=== PATIENT | male | born 1995 | race American Indian/Alaskan Native ===

== ENCOUNTER 2017-03-26 00:35 | Emergency (ER) | payer SELFPAY ==
[2017-03-26 03:57] LABS: Bilirubin,Urine NEG (Negative); Blood,Urine NEG (Negative); Ketones,Urine NEG (Negative); Leukocyte Esterase,Urine NEG (Negative); Nitrite,Urine NEG (Negative); Protein,Urine <15 mg/dL mg/dL (Negative)
[2017-03-26] MEDS ORDERED: ROCEPHIN IM ONE (07:33)
[2017-03-26] MEDS ORDERED: XYLOCAINE 1% MPF 5 mL INFILTRATI ONE (07:33)
[2017-03-26] MEDS ORDERED: ZITHROMAX PO ONE (07:33)
--- NOTE | 2017-03-26 07:38 | Emergency Department Report ---
ED Male HPI - General Chief complaint: Abdominal Pain Stated complaint: LOWER ABD PAIN Time Seen by Provider: 03/26/17 07:32 Source: patient Mode of arrival: Ambulatory Limitations: No Limitations - History of Present Illness Initial comments: Pt states he has had on and off swelling and pain in his groin x 1 week, R > L. No abdominal pain, fevers, nausea, vomiting, testicular pain, dysuria, discharge. States has had multiple lesions to scrotum for "a long time." Complaint: groin pain -: Gradual, days(s) (5) Location: right inguinal region, left inguinal region Severity: mild Severity scale (0 -10): 4 Quality: aching Consistency: intermittent Improves with: none Worsens with: none denies other symptoms - Related Data Sexually active: Yes Previous Rx's Medication Instructions Recorded Last Taken Type Sulfamethoxazole/Trimethoprim 1 each PO BID #20 tablet 03/26/17 Unknown Rx [Bactrim Ds Tablet] Allergies Allergy/AdvReac Type Severity Reaction Status Date / Time No Known Allergies Allergy Unverified 03/26/17 01:51 ED Review of Systems ROS: Stated complaint: LOWER ABD PAIN Other details as noted in HPI Comment: All other systems reviewed and negative Constitutional: denies: chills, fever Eyes: denies: eye pain, eye discharge, vision change ENT: denies: ear pain, throat pain Respiratory: denies: cough, shortness of breath, wheezing Cardiovascular: denies: chest pain, palpitations Endocrine: no symptoms reported Gastrointestinal: denies: abdominal pain, nausea, diarrhea Genitourinary: denies: urgency, dysuria Musculoskeletal: denies: back pain, joint swelling, arthralgia Skin: denies: rash, lesions Neurological: denies: headache, weakness, paresthesias Psychiatric: denies: anxiety, depression Hematological/Lymphatic: denies: easy bleeding, easy bruising ED Past Medical Hx - Past Medical History Previous Medical History?: No - Surgical History Past Surgical History?: No - Social History Smoking Status: Current Every Day Smoker Substance Use Type: None - Medications Home Medications: Home Medications Medication Instructions Recorded Confirmed Last Taken Type Sulfamethoxazole/Trimethoprim 1 each PO BID #20 tablet 03/26/17 Unknown Rx [Bactrim Ds Tablet] ED Physical Exam - General Limitations: No Limitations General appearance: alert, in no apparent distress - Head Head exam: Present: atraumatic, normocephalic - Eye Eye exam: Present: normal appearance - ENT ENT exam: Present: mucous membranes moist - Neck Neck exam: Present: normal inspection - Respiratory Respiratory exam: Present: normal lung sounds bilaterally. Absent: respiratory distress - Cardiovascular Cardiovascular Exam: Present: regular rate, normal rhythm. Absent: systolic murmur, diastolic murmur, rubs, gallop - GI/Abdominal GI/Abdominal exam: Present: soft, normal bowel sounds. Absent: distended, tenderness, guarding, rebound - Rectal Rectal exam: Present: deferred - exam: Present: other (penis normal. no testicular swelling or tenderness. multiple wart like lesions to scrotum. tender bilateral inguinal lymphadenopathy , nodes freely mobile and < 1 cm. ) - Extremities Exam Extremities exam: Present: normal inspection - Back Exam Back exam: Present: normal inspection - Neurological Exam Neurological exam: Present: alert, oriented X3 - Psychiatric Psychiatric exam: Present: normal affect, normal mood - Skin Skin exam: Present: warm, dry, intact, normal color. Absent: rash ED Course Vital Signs 03/26/17 01:46 Temperature 98.6 F Pulse Rate 87 Respiratory 16 Rate Blood Pressure 128/83 O2 Sat by Pulse 99 Oximetry - Reevaluation(s) Reevaluation #1: 03/26/17 07:37 Pt is in NAD and stable for d/c. ED Medical Decision Making - Lab Data UA clear - Medical Decision Making Pt has normal exam outside of couple mildly enlarged tender inguinal lymph nodes. UA clear. No systemic sx. Will give course of abx and PCP follow up in 2- 3 days. - Differential Diagnosis UTI, STI, genital warts. Critical care attestation.: If time is entered above; I have spent that time in minutes in the direct care of this critically ill patient, excluding procedure time. ED Disposition Clinical Impression: Inguinal lymphadenopathy, Genital lesion, male Disposition: - TO HOME OR SELFCARE Is pt being admited?: No Condition: Good Instructions: Lymphadenopathy (ED) Prescriptions: Sulfamethoxazole/Trimethoprim [Bactrim Ds Tablet] 1 each PO BID #20 tablet Referrals: MAHI FENTON MD [Staff Physician] - 2-3 Days Time of Disposition: 07:38
[2017-03-26 08:43] VITALS: BP 141/90
== END 2017-03-26 08:10 | disposition home or self-care (01) ==
LOC: ED 00:35
DX: R59.0 Localized enlarged lymph nodes (principal); N50.9 Disorder of male genital organs, unspecified; L98.8 Other specified disorders of the skin and subcutaneous tissue; F17.200 Nicotine dependence, unspecified, uncomplicated
CPT/HCPCS: 81001; 87591; 96372; 99282; J0696

== ENCOUNTER 2017-09-12 20:41 | Emergency (ER) | payer OTHER ==
[2017-09-12 21:46] LABS: Bilirubin,Urine NEG (Negative); Blood,Urine NEG (Negative); Color,Urine Yellow (Yellow); Mucus,Urine FEW /HPF; Protein,Urine <15 mg/dL mg/dL (Negative); WBC,Urine < 1.0 /HPF (0.0-6.0)
--- NOTE | 2017-09-13 04:09 | Emergency Department Report ---
HPI - General Chief Complaint: Upper Respiratory Infection Time Seen by Provider: 09/13/17 03:24 - HPI HPI: Patient care reports pain to mid chest tightness 2 days. He said pain is mostly with movement.. He also reports difficulty taking a deep breath. Denies any abdominal pain. Denies any fever or chills. He states that he has a dry cough. Denies any wheezing or stridor. Denies any fever or chills. Denies any nausea or vomiting. Pain is 7 out of 10 to chest and comes and goes. Feels sharp. Pain with taking a deep breath per patient. Patient also complained that he had burning with urination and denies any discharge. He said about 3 months ago somebody that he had sexual encounter with told him that she had Trichomonas after condom had broke. He said since he's been having burning but no discharge. He has a history of asthma. Denies any wheezing. Denies any blood in his urine. No medication taken for pain per patient. Burning pain with urination none without. Chest pain is worse with breathing and movement. Denies any nausea or vomiting. Denies any sore throat. He said he was told that he has allergies from having nasal congestion and runny nose but he is not sure .denies any rash or lesion to genital area. ED Past Medical Hx - Past Medical History Previous Medical History?: Yes Hx Asthma: Yes - Surgical History Past Surgical History?: No - Family History Family history: no significant - Social History Smoking Status: Never Smoker Substance Use Type: Alcohol - Medications Home Medications: Home Medications Medication Instructions Recorded Confirmed Last Taken Type Sulfamethoxazole/Trimethoprim 1 each PO BID #20 tablet 03/26/17 Unknown Rx [Bactrim Ds Tablet] Cetirizine HCl [ZyrTEC] 10 mg PO QAM 14 Days #14 capsule 09/13/17 Unknown Rx Fluticasone [Flonase] 1 spray NS QDAY 14 Days #1 bottle 09/13/17 Unknown Rx Naproxen 500 mg PO Q12H PRN #12 tablet 09/13/17 Unknown Rx ED Review of Systems ROS: Stated complaint: CHEST PAIN,PAIN WHEN URINATING Other details as noted in HPI Comment: All other systems reviewed and negative Constitutional: no symptoms reported Eyes: denies: eye pain, eye discharge ENT: congestion. denies: ear pain, throat pain, dental pain, epistaxis Respiratory: cough, SOB with exertion. denies: orthopnea, shortness of breath, SOB at rest, stridor, wheezing Cardiovascular: chest pain. denies: palpitations, dyspnea on exertion, orthopnea, edema, syncope, paroxysmal nocturnal dyspnea Gastrointestinal: denies: abdominal pain, nausea, vomiting, diarrhea, constipation, hematemesis, melena, hematochezia Genitourinary: dysuria. denies: frequency, hematuria, discharge, testicular pain, testicular mass Musculoskeletal: denies: back pain, joint swelling, arthralgia, myalgia Skin: denies: rash Neurological: denies: headache, numbness, paresthesias, confusion, abnormal gait , vertigo Physical Exam - Physical Exam Vital Signs: Vital Signs 09/12/17 09/12/17 20:41 20:46 Temperature 98.6 F 98.6 F Pulse Rate 83 83 Respiratory 18 18 Rate Blood Pressure 135/77 135/77 O2 Sat by Pulse 100 100 Oximetry General: This is a 22-year-old male well-nourished well-developed in no acute distress. Physical Exam: Head: Normocephalic, atraumatic, no abrasion, no bruising and no contusion. Eyes: Biateral pupils equal and reactive to light, bilateral EOM intact.. Bilateral conjunctival and sclera without injection, normal accommodation. Mouth: Mucosa dry, no pharyngeal exudate or erythema. No peritonsillar abscesses. Uvula is midline and oral airways patent. Ears: Bilateral TMs congested without erythema, Bilateral EAC without any redness swelling or drainage. No mastoid bone tenderness Nose: Bilateral nasal mucosa pale and boggy with clear drainage,Maxillary and frontal sinuses non-tender to palpate. Neck: Supple, No Cervical adenopathy, full range of motion and no C-spine tenderness. No swelling or tracheal deviation normal reflexes Cardiovascular: S1, S2. Regular rate and rhythm. No murmur. Capillary refill is less then 3 seconds. Lungs: Clear to auscultate bilaterally. No rhonchi, wheezes or rales. No chest wall tenderness. No chest contusion. No bruising to chest. MSK: Strength 5/5 in all extremities. No joint deformity or crepitus. Normal inspection. Full range of motion to all extremities. No laceration, abrasion or ecchymotic area noted. Abdomen: Non-tender to palpate in all quadrants, no guarding or rebound tenderness, positive bowel sounds in all quadrants. No CVA tenderness. No hernia, bruit or mass. No rigidity or distention. Extremities: No clubbing, cyanosis or edema. +2 pulses. No neurovascular compromise Skin: Clean, dry and intact. No rash or lesions. Neurological: GCS at 15, Pt is alert and oriented 3 speech is clear . 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 Normal gait. Negative Romberg and no pronator drift. Normal Reflexes. No motor or sensory deficit Back: No vertebral tenderness, no paraspinal tenderness. Ambulates without any difficulties. Psych: Normal mood and behavior ED Course Vital Signs 09/12/17 09/12/17 20:41 20:46 Temperature 98.6 F 98.6 F Pulse Rate 83 83 Respiratory 18 18 Rate Blood Pressure 135/77 135/77 O2 Sat by Pulse 100 100 Oximetry - Reevaluation(s) Reevaluation #1: 09/13/17 04:53 Patient is requested to be treated for STD. Gonorrhea and chlamydia test is sent via urine. Urinalysis came back negative except for trace ketone and is able to tolerate fluids well. Patient given Rocephin 250 mg IM, Zithromax 1 g by mouth and Flagyl 2 g by mouth. He had no adverse reaction from medication. ED Medical Decision Making - Lab Data Lab Results 09/12/17 09/13/17 Range/Units 21:30 04:15 D-Dimer 135.00 (0-234) ng/mlDDU Urine Color Yellow (Yellow) Urine Turbidity Clear (Clear) Urine pH 5.0 (5.0-7.0) Ur Specific [place] 1.028 (1.003-1.030) Urine Protein <15 mg/dl (Negative) mg/dL Urine Glucose (UA) Neg (Negative) mg/dL Urine Ketones Tr (Negative) mg/dL Urine Blood Neg (Negative) Urine Nitrite Neg (Negative) Urine Bilirubin Neg (Negative) Urine Urobilinogen 2.0 (<2.0) mg/dL Ur Leukocyte Esterase Neg (Negative) Urine WBC (Auto) < 1.0 (0.0-6.0) /HPF Urine RBC (Auto) 2.0 (0.0-6.0) /HPF Urine Mucus Few /HPF D-dimer within normal range. - EKG Data -: EKG Interpreted by Me (Dr. Bustillos) EKG shows normal: sinus rhythm Rate: bradycardia (54 bpm which is normal for patient as he expressed) - EKG Data Interpretation: no acute changes - Radiology Data Radiology results: report reviewed CXR revealed no acute cardiopulmonary findings - Medical Decision Making ED course: She multiple complaints include chest pain to right mid chest, cough and with pain with coughing and taking deep breaths. He is complaining of burning with urination and reports that he was exposed to Trichomonas 3 months ago but he is not having any discharge. Patient wants to be treated for STDs. Urinalysis reveals normal values except he has trace ketones the patient is not dehydrated and is able to drink without any difficulties. EKG without any acute abnormalities, chest x-ray reveals no acute abnormalities. D-dimer normal levels. Patient cardiac risk score is 0. Her PERC Rule patient on its 0 risk for pulmonary embolism coupled with d-dimer being normal. Patient treated for STD with Flagyl 2 g by mouth, azithromycin 1 g by mouth and Rocephin sludge and 50 mg IM in emergency room. I discussed the patient that if he continues to have chest pain that he needs to follow-up with a manager of school. Patient does have access to medical care but he does not have a primary care doctor so I told them that he should follow-up with Dr. Padgett for primary care or some outside [facility] where he will need to have repeat STD tested in 7-10 days. I discussed the patient is diagnosis and treatment plan and also lab reports, chest x-ray and EKG report. He had no adverse reaction from medication and discharged home in stable condition with prescription for Motrin. Critical care attestation.: If time is entered above; I have spent that time in minutes in the direct care of this critically ill patient, excluding procedure time. ED Disposition Clinical Impression: Atypical chest pain, Exposure to STD, Dysuria, Upper respiratory infection with cough and congestion Disposition: DC-01 TO HOME OR SELFCARE Is pt being admited?: No Does the pt Need Aspirin: No Condition: Stable Instructions: Chest Pain (ED), Upper Respiratory Infection (ED), Sexually Transmitted Diseases (ED), Safe Sex (ED), Trichomoniasis (ED) Additional Instructions: Please refrain from having sexual activity with anyone until you get retested Urine was sent off for gonorrhea and chlamydia and will be back in approximately 5 days. you were treated for gonorrhea, chlamydia and trichomonas in emergency room and will need to get rechecked in 7 to 10 days. Please see referral to primary care provider in discharge instruction paperwork. Refrain from drinking alcohol over the next 5 days as medication given for Trichomonas can interact negatively would alcohol. Practice safe sex. Take Zyrtec and Flonase for nasal congestion/upper respiratory tract infection suspect due to Follow-up with manager of school for chest pain Prescriptions: Cetirizine HCl [ZyrTEC] 10 mg PO QAM 14 Days #14 capsule Fluticasone [Flonase] 1 spray NS QDAY 14 Days #1 bottle Naproxen 500 mg PO Q12H PRN #12 tablet PRN Reason: Pain Referrals: ASHLEY PADGETT MD [Staff Physician] - 7-10 days [facility] [Outside] - 7-10 days JERRY CARROLL MD [Staff Physician] - 09/15/17 Forms: Work/School Release Form(ED)
--- NOTE | 2017-09-13 04:37 | XRay Report ---
FINAL REPORT EXAM: XR CHEST ROUTINE 2V HISTORY: cp/sob TECHNIQUE: PA and lateral views of the chest were submitted. FINDINGS: The lungs are clear. The heart size is normal. Pleural fluid is not seen. There is no evidence of congestion. The skeletal structures are well-maintained. IMPRESSION: Normal chest
[2017-09-13] MEDS ORDERED: ZITHROMAX PO ONE (04:45)
[2017-09-13] MEDS ORDERED: FLAGYL PO ONE (04:45)
[2017-09-13] MEDS ORDERED: XYLOCAINE 1% MPF 5 mL INFILTRATI ONE (04:45)
[2017-09-13] MEDS ORDERED: ROCEPHIN IM ONE (04:45)
[2017-09-13 05:45] VITALS: BP 131/71
== END 2017-09-13 05:43 | disposition home or self-care (01) ==
LOC: ED 20:41
DX: Z20.2 Contact with and (suspected) exposure to infections with a predominantly sexual mode of transmission (principal); R30.0 Dysuria; J06.9 Acute upper respiratory infection, unspecified; J45.909 Unspecified asthma, uncomplicated; Z91.013 Allergy to seafood
CPT/HCPCS: 36415; 71046; 81001; 85379; 87591; 93005; 93010; 96372; 99284; J0696